=== PATIENT | female | born 1955 | race Two or more races ===

== ENCOUNTER 2022-07-20 18:56 | Emergency (ER) | payer OTHER ==
[~2022-07-20] VITALS: Ht 167.6 cm; Wt 90.7 kg
[2022-07-20 19:30] VITALS: BP_SYST 155
--- NOTE | 2022-07-20 19:40 | NUR ---
Patient to ER bed 8 to gown for evaluation. Side rails up. Report given to Prisca JUAREZ(reg).
--- NOTE | 2022-07-20 19:45 | NUR ---
Pt coming from home ambulatory with steady gait accompanied by son. Pt states she has been having RLQ pain 8/10 non-radiating. No other c/o. Pt is A&Ox4. Skin intact. NKA. Connected pt to cardiac monitoring. No chest pain and no sob. Denies n/v. VSS. Bed in lowest position.
--- NOTE | 2022-07-20 19:50 | NUR ---
Urine collected and sent to lab.
--- NOTE | 2022-07-20 19:58 | NUR ---
# 20 gauge angiocath placed to left AC. Use of asceptic technique. Opsite placed over site. Blood return noted. Blood for lab drawn from site. Flushed with 10 cc of normal saline. No evidence of infiltration noted. Patient tolerated well.
--- NOTE | 2022-07-20 20:02 | NUR ---
ER Dr.De Villafana at bedside examining patient.
[2022-07-20 20:05] LABS: BILIRUBIN,URINE NEGATIVE (NEGATIVE); CLARITY/URINE CLEAR (CLEAR); COLOR,URINE YELLOW (YELLOW); GLUCOSE,URINE NEGATIVE (NEGATIVE); KETONES,URINE TRACE (NEGATIVE); LEUKOCYTE ESTERASE ,URINE 1+ (NEGATIVE); NITRITE, URINE NEGATIVE (NEGATIVE); PH,URINE 5.5 (5.0-8.0); PROTEIN URINE NEGATIVE (NEGATIVE); UROBILINOGEN,URINE 0.2 (0.2-1.0)
[2022-07-20 20:10] LABS: BASOPHILS % (AUTO) 0.2 % (0.0-2.0); EOSINOPHILS % (AUTO) 0.2 % (0.0-4.0); HEMATOCRIT 44.1 % (36-48); HEMOGLOBIN 14.6 g/dL (12.0-16.0); LYMPHOCYTES # (AUTO) 2.1 K/uL (1.0-5.5); LYMPHOCYTES % (AUTO) 28.7 % (20.5-51.5); MEAN CORPUSCULAR HEMOGLOBIN 27 pg (27-31); MEAN CORPUSCULAR HGB CONC 33 % (32-36); MEAN CORPUSCULAR VOLUME 83 fL (79.0-98.0); MONOCYTES # (AUTO) 0.6 K/uL (0.0-1.0); MONOCYTES % (AUTO) 7.5 % (1.7-9.3); NEUTROPHILS # (AUTO) 4.7 K/uL (1.8-7.7); NEUTROPHILS % (AUTO) 63.4 % (40.0-70.0); PLATELET COUNT (AUTO) 179 K/uL (130-430); RED BLOOD CELL COUNT(AUTO) 5.31 MIL/uL (4.2-6.2); RED CELL DISTRIBUTION WIDTH 12.7 % (9.0-15.0); WHITE BLOOD COUNT (AUTO) 7.4 K/uL (4.8-10.8)
[2022-07-20 20:13] LABS: CALCIUM 9.4 mg/dL (8.4-11.0); CREATININE 0.89 mg/dL (0.55-1.30)
[2022-07-20] MEDS ORDERED: NACL 0.9% 1,000 ML IV ONE (20:15)
[2022-07-20] MEDS ORDERED: fentaNYL CITRATE/PF 100 MCG/2 ML AMP IVP ONE (20:15)
[2022-07-20] MEDS ORDERED: PROCHLORPERAZINE EDISYLATE 10 MG/2 ML VIAL IVP ONE (20:15)
[2022-07-20 20:16] LABS: BLOOD, URINE TRACE (NEGATIVE)
[2022-07-20 20:17] LABS: BACTERIA,URINE FEW /HPF (None Seen); RBC,URINE 0-3 /HPF (0-3)
[2022-07-20 20:18] LABS: ALBUMIN 3.8 g/dL (3.4-4.8); MUCUS,URINE None Seen /LPF (None Seen); TOTAL BILIRUBIN 0.5 mg/dL (0.0-1.0)
[2022-07-20] MEDS ORDERED: CIPR250T4 PO (22:39)
[2022-07-20] MEDS ORDERED: ACET12.55 PO (22:39)
[2022-07-20] MEDS ORDERED: CIPROFLOXACIN HCL 500 MG TABLET PO ONE (22:45)
--- NOTE | 2022-07-20 23:10 | NUR ---
Patient given written and verbal discharge instructions and verbalizes understanding. ER MD discussed with patient the results and treatment provided. Patient in stable condition. ID arm band removed. IV catheter removed intact and dressing applied, no active bleeding. Rx of Cipro and Tylenol/codeine liquid given. Patient educated on pain management and to follow up with PMD. Pain Scale 3/10. Opportunity for questions provided and answered. Medication side effect fact sheet provided.
[2022-07-20 23:17] VITALS: BP_SYST 115
== END 2022-07-20 23:10 | disposition home or self-care (01) ==
LOC: SED 18:56
DX: N39.0 Urinary tract infection, site not specified (principal); R10.11 Right upper quadrant pain; Z79.899 Other long term (current) drug therapy
CPT/HCPCS: 99284; 96374; 96361; 96375; 80053; 81000; 83690; 85025; 87086; 36415; 74021; J0780; J3010; J7030